=== PATIENT | female | born 1965 | race Caucasian/White ===

== ENCOUNTER 2019-05-03 20:00 | Inpatient (IN) ==
--- NOTE | 2019-05-03 20:21 | HP ---
Chief Complaint - Chief Complaint Date of Service: 05/03/19 Time of Service: 20:13 Chief Complaint: acute appy, leukocytosis History of Present Illness: Bertha is a pleasant 53-year-old female who awoke with severe abdominal pain on the right side of the abdomen it was both in the right upper and right lower abdomen and radiating to the back. She has never had pain like this before. Bumps on the road on the way here were extremely pain full for her. She is been throwing up all day. She was initially seen in the [facility] emergency room. She was found to have a white count of 22. The appendix measured 12 mm and a an appendicolith was present. The patient was not given IV dye due to her allergy. No stranding was seen around the appendix. This could be due to the lack of IV dye. She is otherwise healthy other than previous surgeries. Medical History (Updated 05/03/19 @ 20:19 by Keren Salinas DO) H/O: hysterectomy Surgical History: Surgical History (Updated 05/03/19 @ 20:19 by Keren Salinas DO) History of cholecystectomy Family History: Family History (Updated 05/03/19 @ 20:20 by Keren Salinas DO) Other Family history non-contributory Social History: (Last Updated 05/03/19 @ 20:20 by Keren Salinas DO) Tobacco: Smoking Status: Never smoker Alcohol: alcohol intake frequency: holiday/special occasion Review Of Systems (GEN) - Review of Systems Generalized/Overall Review: Present: Chills, Fever, Malaise EENTM: Present: No Symptoms Reported Respiratory: Present: No Symptoms Reported Cardiac: Present: No Symptoms Reported Abdominal: Present: Nausea, Vomiting, Abdominal Pain Genitourinary: Present: No Symptoms Reported Musculoskeletal: Present: No Symptoms Reported Neurological: Present: No Symptoms Reported Skin: Present: No Symptoms Reported Endocrine: Present: No Symptoms Reported Allergies/Adverse Reactions: Allergies Allergy/AdvReac Type Severity Reaction Status Date / Time azithromycin Allergy Verified 05/03/19 20:07 iodine Allergy Verified 05/03/19 20:07 Penicillins Allergy Verified 05/03/19 20:07 IV Contrast Allergy Uncoded 05/03/19 20:07 Home Medications: HOME MEDICATIONS NK 05/03/19 [Last Taken Unknown] Exam - Exam Constitutional: Present: Alert, Oriented x3, Cooperative, Mild distress, Obese ENT Exam: Present: hearing grossly normal Eye Exam: bilateral eye: normal inspection Neck: Present: full range of motion Back Exam: Present: normal inspection Breasts: Present: Exam deferred Respiratory: Present: lungs clear, normal breath sounds Cardiovascular/Chest: Present: regular rate, rhythm Abdomen: Present: Normal bowel sounds, soft, nondistended, no masses, obese, guarding, rebound tenderness. Absent: rigidity /Rectal: Present: Exam deferred Extremity: Present: normal range of motion Skin Exam: Present: normal color Neurologic: Present: retort feeder ground bone II-XII nml as tested Appearance: Present: appropriate appearance Eye contact: Present: cooperative Thoughts: Present: normal thought pattern Diagnostic Studies: CT scan with appendix measuring 12 mm. An appendicolith. White count of 22. Assessment/Plan - Narrative Narrative: Patient will be taken to the OR for a laparoscopic possible open appendectomy. Risks and benefits of the procedure were discussed with the patient including bleeding infection and need for an open surgery. She voices understanding. She will be given Levaquin and Flagyl as she is allergic to penicillin. Thank you for allowing me to participate in the care of your patient, please call if any questions. - Assessment/Plan (1) Leukocytosis Problem: Acute (2) Acute appendicitis Problem: Acute
[2019-05-03] MEDS ORDERED: HYDROmorphone HCL 1 MG/ML DISP.SYRIN IV PRN (20:22)
[2019-05-03] MEDS ORDERED: ONDANSETRON HCL/PF 2 MG/ML VIAL IV PRN (20:22)
[2019-05-03] MEDS ORDERED: ACETAMINOPHEN 325 MG TABLET PO PRN (20:22)
--- NOTE | 2019-05-03 20:27 | ANES ---
Anesthesia Pre Procedure Eval Vitals/Labs: Last Vital Signs Temp 36.0 C 05/03/19 20:09 Pulse 86 05/03/19 20:09 Resp 16 05/03/19 20:09 BP 153/88 H 05/03/19 20:09 Pulse Ox 98 05/03/19 20:09 HOME MEDICATIONS NK 05/03/19 [Last Taken Unknown] Allergies/Adverse Reactions: Allergies Allergy/AdvReac Type Severity Reaction Status Date / Time azithromycin Allergy Verified 05/03/19 20:07 iodine Allergy Verified 05/03/19 20:07 Penicillins Allergy Verified 05/03/19 20:07 IV Contrast Allergy Uncoded 05/03/19 20:07 - Planned Procedure Planned Procedure: appy Medication List Reviewed:: Yes Allergies Verified: Yes Medical History (Updated 05/03/19 @ 20:19 by Keren Salinas DO) H/O: hysterectomy Surgical History (Updated 05/03/19 @ 20:19 by Keren Salinas DO) History of cholecystectomy Family History (Updated 05/03/19 @ 20:20 by Keren Salinas DO) Other Family history non-contributory - Family Anesthesia History Family History:: no untoward family reactions to anesthesia, no familial bleeding tendencies, no family history of clotting disorders, no family history of premature - Airway/Neck/Teeth Within Normal Limits:: Yes Teeth Condition: intact Neck Exam: full range of motion Mallampatti Score: 3 Thyromental (T-M) distance: > 6 cm Mandibulo Hyoid distance: > 3 cm - Respiratory Respiratory Physical: lungs clear Smoking Status: Never smoker Sleep Apnea currently treated: No Sleep Apnea by current assessment: Yes Discussed Risks/Treatment of MÓNICA: Yes - Cardiovascular Tolerate Activity: Fair Heart Sounds: S1 & S2, Regular - Anesthesia Assessment and Plan ASA Class: PS, II, E Anesthesia Type Plan: General ET
[2019-05-03] MEDS ORDERED: LEVOFLOXACIN IN DEXTROSE 5 % 750 MG/150 ML BAG IV ONE (20:45)
[2019-05-03] MEDS ORDERED: RINGER'S SOLUTION,LACTATED 1,000 ML IV PRN (20:50)
[2019-05-03] MEDS ORDERED: metroNIDAZOLE/SODIUM CHLORIDE 500 MG/100 ML BAG IV ONE (21:00)
[2019-05-03] MEDS ORDERED: BUPIVACAINE HCL/EPINEPHRINE/PF 30 ML VIAL IJ ONE (21:36)
--- NOTE | 2019-05-03 21:45 | OR ---
Operative Report - Dictated Report Narrative: Date of Service: 05/03/19 Procedure: laparoscopic appendectomy Pre-procedure diagnosis: acute appendicitis Post-procedure diagnosis: Perforated appendicitis Surgeon: Dr. Keren Salinas Anesthesia: general Indication for procedure: Bertha is a pleasant 53-year-old female who has a white count of [address] scan suggestive of appendicitis. Description of procedure: After appropriate informed consent was obtained patient was taken to the operating room, placed in the supine position. General anesthesia was achieved. The RN placed a Snow catheter. The patient was prepped and draped in the usual sterile fashion. A 5 mm periumbilical incision was made, hemostat was used to dissect down to the fascia. A Veress needle was inserted, a saline drop test was performed which was satisfactory. The abdomen was insufflated to 15 mmHg. A 5mm blunt trocar was placed at the umbilicus. The camera was inserted, there was no evidence of a trocar injury. A 12 mm trocar was placed in the left lower quadrant of the abdomen. A 5 mm trocar was placed in the suprapubic region. The patient was placed in a head down, rotated left position, to facilitate exposure. The appendix was identified, it appeared consistent with acute appendicitis, and was ruptured at the tip of the appendix. A window was made in the mesoappendix. The 45 mm echelon stapler with the white load was placed across the base of the appendix. There was good hemostasis. The echelon 45 mm stapler with a white load was then placed across the mesoappendix. There was good hemostasis. The appendix was removed through an Endo Catch bag. The abdomen was inspected and the staple lines were intact, with good hemostasis. The remainder of the abdomen was inspected and was satisfactory. The patient did have some adhesions at the periumbilical region which we worked around. The abdomen was desufflated. Local anesthetic was injected. The incisions were closed with inverted interrupted 4-0 Monocryl sutures. Mastisol and Steri-Strips were applied. The patient tolerated the procedure well and was transported to the PACU in satisfactory condition. Estimated blood loss: minimal Complications: none Specimens to pathology: appendix Disposition: The patient will be admitted to the floor for observation.
--- NOTE | 2019-05-03 22:01 | ANES ---
Post Anesthesia Discharge - Transfer of Care Transfer of Care handoff given to nurse: Yes - Discharge from PACU Discharge from PACU when meets criteria: Yes - Comfortable in PACU.
--- NOTE | 2019-05-03 22:16 | ANES ---
Post Anesthesia Assessment - Vital Signs Vitals: Last Vital Signs Temp 36.7 C 05/03/19 22:00 Pulse 80 05/03/19 22:10 Resp 27 H 05/03/19 22:10 BP 123/83 05/03/19 22:10 Pulse Ox 94 05/03/19 22:10 Airway Patency: Normal - Mental Status Level Of Consciousness: Awake, Alert, Appropriate - Pain Level Pain Score: 0 - N/V Assessment Nausea/Vomiting Presence: None Dehydration:: No
[2019-05-03] MEDS: POTASSIUM CHLORIDE 20 MEQ in DEXTROSE 5%-0.5 NORMAL SALINE 990 ML IV SCH (22:48)
[2019-05-04] MEDS: HYDROcodone/ACETAMINOPHEN 1 EACH TABLET PO PRN ×2 (00:23→09:51)
[2019-05-04] MEDS: metroNIDAZOLE 500 MG TABLET PO SCH ×2 (04:21→12:29)
[2019-05-04] MEDS: POTASSIUM CHLORIDE 20 MEQ in DEXTROSE 5%-0.5 NORMAL SALINE 990 ML IV SCH (06:25)
--- NOTE | 2019-05-04 10:37 | PN ---
Dictated Progress Note - Date and Time Seen: Date: 05/04/19 Time: 10:36 - Progress Note Narrative: Patient is feeling better she is up and walking in the hallways. Her pain is changed from the appendicitis pain to more of a muscular pain from the incisions. Vital Signs - Last Taken Temp 36.8 C 05/04/19 08:40 Pulse 75 05/04/19 09:52 Resp 16 05/04/19 09:52 BP 125/71 05/04/19 09:52 Pulse Ox 95 05/04/19 09:52 NAD non labored soft, nondistended, C- D/I Imp POD #1 lap appy Plan dc today
--- NOTE | 2019-05-04 10:43 | DS ---
(1) Leukocytosis Problem: Acute (2) Acute appendicitis Problem: Acute Qualifiers: Acute appendicitis type: with localized peritonitis Appendicitis gangrene presence: with gangrene Appendicitis perforation presence: with perforation Appendicitis abscess presence: without abscess Qualified Code(s): K35.32 - Acute appendicitis with perforation and localized peritonitis, without abscess Description of Stay: Bertha is a pleasant 53-year-old female who was admitted from the emergency room. She was initially seen in the [facility] emergency room. She had a CT scan which showed a dilated appendix of 12 mm. A white count of 22. She was taken to the OR for laparoscopic appendectomy. The distal tip of the appendix was perforated. She is recovering well today. Procedures Performed: see notes below List Procedures: Laparoscopic appendectomy Results and Findings: Lab Pending Results 05/03/19 21:30: Pathology Specimen Spec to path Discharge Location: Home Disposition: Home self-care Condition: Fair Discharge Activity: Activity as tolerated Discharge Diet: General/regular food Prescriptions (Any new or edited meds): metroNIDAZOLE [Flagyl] 500 mg PO Q8H #21 tab Levofloxacin [Levaquin] 500 mg PO Q24H #7 tab HYDROcodone/ACETAMINOPHEN [[place] 5-325] 2 ea PO Q6H PRN #20 tab PRN Reason: Moderate Pain (Pain Scale 4-6) Complete Home Medications List: Complete Home Medication List: Acetaminophen [Tylenol] 650 mg PO Q6H PRN tab 05/04/19 HYDROcodone/ACETAMINOPHEN [[place] 5-325] 2 ea PO Q6H PRN #20 tab 05/04/19 Levofloxacin [Levaquin] 500 mg PO Q24H #7 tab 05/04/19 metroNIDAZOLE [Flagyl] 500 mg PO Q8H #21 tab 05/04/19
[2019-05-04 17:02] VITALS: BP 120/73
[2019-05-04] MEDS ORDERED: LEVOFLOXACIN 500 MG TABLET PO SCH (20:00)
== END 2019-05-04 14:26 | disposition home or self-care (01) | DRG 373 ==
LOC: ER 20:00 → MS 20:24 → AMB 20:24 → OBSVTOIN 22:06
PROVIDERS: ADMIT Surgery; ATTEND Surgery
CPT/HCPCS: 88304